=== PATIENT | female | born 1995 | race Two or more races ===

== ENCOUNTER → 2019-10-16 | Emergency (ER) | payer MEDICAID ==
[~2019-10-16] VITALS: Ht 160 cm; Wt 49.9 kg
[~2019-10-16] MED LIST: ALEN1TAB32 PO; BECL80AE9 IN; CHOL20007 OR; DOPamine 1600MCG/ML D5W 250 ML IV ONE; HYDR-4833 PO; HYDR200T36 PO; IOHEXOL 300 MG/ML 100ML BOTTLE IJ ONE; MORP15TA PO; MYCO500T PO; OYST500T48 OR; PANT40TA2 PO; PIPERACILLIN-TAZOB 3.375GM 100 ML IV ONE; PRAV20TA3 PO; PRE5T PO; SODIUM CHLORIDE 0.9% 1,000 ML IV ONE; [UNRECOGNIZED DRUG - CODE] SC
[2019-10-16 15:51] LABS: Basophils # (auto) 0 10 ^3/uL (0-0.2); Basophils % (auto) 0.7 % (0.0-2.0); Eosinophils # (auto) 0.3 10 ^3/uL (0-0.8); Eosinophils % (auto) 5.9 % (0.0-7.0); Hematocrit 41.2 % (36.0-46.0); Hemoglobin 13.9 g/dL (12.2-16.2); Lymphocytes # (auto) 1.9 10 ^3/uL (0.4-5.4); Lymphocytes % (auto) 40.5 % (10.0-50.0); Mean Corpuscular Hemoglobin 30.7 pg (28.0-32.0); Mean Corpuscular Hgb Conc. 33.9 g/dL (32.0-36.0); Mean Corpuscular Volume 90.8 fL (80.0-100.0); Monocytes # (auto) 0.4 10 ^3/uL (0-1.3); Monocytes % (auto) 8.5 % (0.0-12.0); Neutrophils # (auto) 2.1 10 ^3/uL (1.6-8.6); Neutrophils % (auto) 44.4 % (37.0-80.0); Nucleated Red Blood Cells % 0.1 %; Platelet Count (auto) 226 10^3/uL (140-450); Red Blood Cells 4.54 10^6/uL (4.0-5.20); Red Cell Distribution Width 13.4 % (11.8-14.3); White Blood Cell 4.7 10^3/uL (4.4-10.8)
[2019-10-16 16:03] LABS: Albumin 4.5 g/dL (3.4-5.0); BUN/Creatinine Ratio 10.5; Calcium 9.9 mg/dL (8.5-10.1)
[2019-10-16 16:05] LABS: Bilirubin, Total 0.7 mg/dL (0.2-1.0); Total Protein 8.2 g/dL (6.4-8.2)
[2019-10-16 16:48] LABS: INR 1.06 (0.9-1.15); Partial Thromboplastin Time 47.6 sec (23.0-31.2)
[2019-10-16 18:49] VITALS: BP 123/57
== END | disposition home or self-care (01) ==
LOC: EDUNIT# 15:17 → EDBD 15:18 → ER 15:18
DX: E86.0 Dehydration (principal); N83.202 Unspecified ovarian cyst, left side; R00.1 Bradycardia, unspecified; Z87.891 Personal history of nicotine dependence
CPT/HCPCS: 36415; 71045; 74177; 80053; 83605; 83690; 84484; 84702; 85025; 85610; 85730; 87040; 93005; 96361; 96365; 99285; J1265; J2543; J7030; Q9967